=== PATIENT | male | born 1990 | race Caucasian/White ===

== ENCOUNTER → 2021-02-11 | Outpatient (CLI) | payer OTHER ==
[~2021-02-11] MED LIST: BACLOFEN10 MG PO; LISINOPRIL10 MG PO; PANTOPRAZOLE SO40 MG PO
== END ==
LOC: MRI 11:27
PROVIDERS: ATTEND Orthopaedic Surgery
DX: M25.462 Effusion, left knee (principal); D21.22 Benign neoplasm of connective and other soft tissue of left lower limb, including hip